=== PATIENT | female | born 1990 | race Asian ===

== ENCOUNTER 2017-07-19 15:38 | Emergency (ER) | payer BC, OTHER ==
[~2017-07-19 15:38] MED LIST: BUPROPION HCL150 M1 PO; BUSPIRONE5 M1 PO; CEL20 PO; CITALOPRAM10 M1 PO; KEP500 PO
[2017-07-19 18:22] VITALS: BP 129/80
== END 2017-07-19 18:22 | disposition home or self-care (01) ==
LOC: ED 15:38
DX: S16.1XXA Strain of muscle, fascia and tendon at neck level, initial encounter (principal); M54.9 Dorsalgia, unspecified; V49.9XXA Car occupant (driver) (passenger) injured in unspecified traffic accident, initial encounter; Y93.89 Activity, other specified; Y99.8 Other external cause status; Y92.89 Other specified places as the place of occurrence of the external cause
CPT/HCPCS: Q0162